=== PATIENT | female | born 1985 | race Two or more races ===

== ENCOUNTER 2018-05-21 13:00 | Observation (INO) | payer MEDICAID, OTHER ==
[2018-05-21] MEDS ORDERED: PREN-96 PO (13:24)
[2018-05-21 14:47] LABS: Basophils # (auto) 0 uL; Basophils % (auto) 0.5 % (0.0-2.0); Eosinophils # (auto) 0.1 uL; Eosinophils % (auto) 0.6 % (0.0-7.0); Hematocrit 39.9 % (36.0-46.0); Hemoglobin 13.6 g/dL (12.2-16.2); Lymphocytes # (auto) 2.2 uL; Lymphocytes % (auto) 21.5 % (10.0-50.0); Mean Corpuscular Hemoglobin 28.9 pg (28.0-32.0); Mean Corpuscular Volume 85.2 fL (80.0-100.0); Monocytes # (auto) 0.8 uL; Monocytes % (auto) 7.8 % (0.0-12.0); Neutrophils % (auto) 69.6 % (37.0-80.0); Platelet Count (auto) 222 10^3/uL (140-450); Red Blood Cells 4.69 10^6/uL (4.0-5.20); Red Cell Distribution Width 13.3 % (11.8-14.3); White Blood Cell 10.1 10^3/uL (4.4-10.8)
[2018-05-21 15:01] LABS: Albumin 2.4 g/dL (3.4-5.0); BUN/Creatinine Ratio 15.9; Calcium 8.8 mg/dL (8.5-10.1); Potassium 3.9 mmol/L (3.5-5.1)
[2018-05-21 15:02] LABS: INR 0.91 (0.9-1.15); Partial Thromboplastin Time 28.5 sec (23.78-33.04); Prothrombin Time 9.8 sec (9.27-12.13)
[2018-05-21 15:04] LABS: Bilirubin, Total 0.3 mg/dL (0.2-1.0); Total Protein 6.9 g/dL (6.4-8.2)
[2018-05-21 15:05] LABS: Alcohol, Urine < 3.0 mg/dL (0-5); Amphetamine Screen, Urine NEGATIVE (NEGATIVE); Barbiturate Scree,Urine NEGATIVE (NEGATIVE); Benzodiazephine Screen, Urine NEGATIVE (NEGATIVE); Cannabinoid Screen, Urine POSITIVE (NEGATIVE); Opiate Scree,Urine NEGATIVE (NEGATIVE); Phencyclidine Screen, Urine NEGATIVE (NEGATIVE)
[2018-05-21 15:09] LABS: Urine Bacteria NONE SEEN /hpf (None Seen); Urine Blood Negative /uL (Negative); Urine Specific Gravity 1.007 (1.001-1.035); Urine WBC 1 /hpf (0 - 5)
[2018-05-21 15:12] LABS: Cocaine Screen, Urine NEGATIVE (NEGATIVE)
[2018-05-22 09:32] LABS: RPR Non Reactive (Non Reactive)
[2018-05-22 13:06] LABS: Rubella Antibodies, IgG 2.98 index (Immune >0.99)
== END 2018-05-21 15:45 | disposition home or self-care (01) | DRG 566 ==
LOC: LDRP 13:00
PROVIDERS: ADMIT Specialist; ATTEND Specialist
DX: O48.0 Post-term pregnancy (principal); O62.9 Abnormality of forces of labor, unspecified; Z3A.40 40 weeks gestation of pregnancy; Z87.891 Personal history of nicotine dependence
CPT/HCPCS: 36415; 59025; 76805; 76818; 80053; 80307; 81001; 81002; 85025; 85610; 85730; 86592; 86703; 86762; 87340; G0378